=== PATIENT | female | born 1960 | race Caucasian/White ===

== ENCOUNTER 2019-11-24 18:12 | Emergency (ER) | payer OTHER, SELFPAY ==
[2019-11-24 18:25] VITALS: BP 115/75; PULSE 63; RESP 16; TEMP 36.3; O2SAT 99
--- NOTE | 2019-11-24 19:22 | ED.GENADULT ---
HPI - General Adult General Chief complaint: Upper Respiratory Infection Stated complaint: sore throat/cough/drainage Time Seen by Provider: 11/24/19 19:22 Source: patient and RN notes reviewed Mode of arrival: ambulatory Limitations: no limitations History of Present Illness HPI narrative: 59-year-old female with complaints of upper respiratory infection symptoms, PND, cough, and scratchy throat for 1 day. No treatment. 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 Dry cough. Rhinorrhea and nasal congestion. No exacerbating factors. No high or chills. No throat pain with swallowing. No voice changes. No drooling, neck or throat swelling. No nausea, vomiting, and abdominal pain. Denies chest pain, dyspnea, coughing up blood, difficulty swallowing, jaw pain, dental pain, facial pain, foreign body sensation, and rash. Menopausal. Some parts of this dictation were generated by voice recognition software and may contain typographical and/or grammatical inaccuracies. Related Data Allergies Allergy/AdvReac Type Severity Reaction Status Date / Time Sulfa (Sulfonamide Allergy Mild Verified 03/19/18 12:20 Antibiotics) Review of Systems Review of Systems: Narrative: CONSTITUTIONAL: Denies fever, chills, sweats. EYES: Denies visual changes, redness, discharge. ENT: Complains of rhinorrhea, congestion, PND, scratchy throat. Denies otalgia. CARDIOVASCULAR: Denies chest pain, palpitations, edema. RESPIRATORY: Denies dyspnea, wheezing. Complains of dry cough. GASTROINTESTINAL: Denies abdominal pain, nausea, vomiting, diarrhea. GENITOURINARY: Denies dysuria, hematuria, abnormal discharge. SKIN: Denies rash or itching. MUSCULOSKELETAL: Denies acute back pain, joint pain, myalgia. NEUROLOGIC: Denies numbness or focal weakness. PSYCHIATRIC: Denies anxiety or depression. All systems reviewed & are unremarkable except as noted in HPI and below. [facility] Past Medical History Medical History (Updated 11/25/19 @ 00:01 by Jyoti Navas) Chronic back pain Menopause Surgical History Surgical History (Updated 11/24/19 @ 19:33 by DIANA Frederick) History of lumpectomy of both breasts Benign, a ribbon pattern left in the right breast Family History Family History (Updated 12/02/19 @ 10:20 by DIANA Frederick) Other No significant family history Social History Social History (Updated 11/24/19 @ 19:33 by DIANA Frederick) Smoking status: Former smoker Additional smoking assessment comments: Yoana says she stopped smoking about 3 to 4 years ago Alcohol intake: current Alcohol use details: Occasional Substance use: never Living arrangements: with family Occupation/Education: occupation Gender identity (if verbalized by the patient): Female Comments At time of signature, agree with nurse past medical, surgical, social, and family history. There is no relevant family history pertinent to the presenting complaint. Exam Narrative: Exam Narrative: GENERAL: This is a well-nourished, well-developed patient, in no apparent distress. Speaks in full sentences and ambulates with steady gait without dyspnea. HEAD: normocephalic, atraumatic. EYES: PERRL. Sclera clear/white. Vision is grossly intact. EARS: External ears normal, auditory canals clear and without drainage, TMs normal without perforation. Hearing grossly intact. NOSE: External nose normal with no obvious nasal discharge, nares with mild redness and enlarged turbinates, clear rhinorrhea. THROAT: Mucous membranes moist, posterior pharynx with PND, mild erythema, no exudate, and normal tonsils. No drainage, no concern for Peritonsillar abscess. No drooling, trismus, or neck swelling. NECK: Neck supple, non-tender without lymphadenopathy, masses or thyromegaly. CARDIOVASCULAR: Regular rate and rhythm without murmurs, gallops, or rubs. RESPIRATORY: Clear to auscultat
== END 2019-11-24 20:02 | disposition home or self-care (01) ==
PROVIDERS: Emergency Provider Nurse Practitioner Family; PCP Family Medicine
DX: J06.9 Acute upper respiratory infection, unspecified (principal); Z87.891 Personal history of nicotine dependence
CPT/HCPCS: 99213; G0463

== ENCOUNTER 2020-07-27 08:02 | Emergency (ER) | payer OTHER, SELFPAY ==
[2020-07-27 08:16] VITALS: BP 135/85; PULSE 93; RESP 16; TEMP 36.8; O2SAT 97
--- NOTE | 2020-07-27 08:21 | ED.GENADULT ---
HPI - General Adult General Chief complaint: Upper Respiratory Infection Stated complaint: covid exposure Source: patient and RN notes reviewed Mode of arrival: ambulatory History of Present Illness HPI narrative: This is a 60-year-old white female who presented to the urgent care today to be seen for Covid testing due to exposure. Yesterday this urgent care clinic call her to inform him that he tested positive for Covid. Today patient is here at the clinic to be tested. Patient was educated informed that once someone in her household test positive she needs to be quarantined for 14 days whether her test shows a positive or not. Patient will be discharged home. I explained quarantine process and gave her and order to be tested for COVID-19. Patient notes that she was unsure, she now agrees to stay at home quarantined. The only symptoms that she had is a subjective low-grade fever of 99 in a runny nose Related Data Home Medications Medication Instructions Recorded Confirmed No Home Medications 07/27/20 07/27/20 Allergies Allergy/AdvReac Type Severity Reaction Status Date / Time Sulfa (Sulfonamide Allergy Mild Verified 07/27/20 08:16 Antibiotics) Review of Systems Review of Systems: All systems reviewed & are unremarkable except as noted in HPI and below (10 point system review) PMFSH Past Medical History Medical History Chronic back pain Menopause Surgical History Surgical History History of lumpectomy of both breasts Benign, a ribbon pattern left in the right breast Family History Family History Other No significant family history Social History Social History Smoking status: Former smoker Additional smoking assessment comments: Yoana says she stopped smoking about 3 to 4 years ago Alcohol intake: current Substance use: never Gender identity (if verbalized by the patient): Female Exam Narrative: Exam Narrative: GENERAL: This is a well-nourished, well-developed patient, in no apparent distress. HEAD: normocephalic, atraumatic. EYES: PERRL. Sclera clear/white. Vision is grossly intact. EARS: External ears normal, auditory canals clear and without drainage, TMs normal without perforation. Hearing grossly intact. NOSE: External nose normal with no obvious nasal discharge, nares without redness, no rhinorrhea. THROAT: Mucous membranes moist, posterior pharynx clear. NECK: Neck supple, non-tender without lymphadenopathy, masses or thyromegaly. CARDIOVASCULAR: Regular rate and rhythm without murmurs, gallops, or rubs. RESPIRATORY: Clear to auscultation. Breath sounds equal bilaterally. No wheezes, rales, or rhonchi. GASTROINTESTINAL: Abdomen soft, non-tender, nondistended. Bowel sounds are active. No hepato-splenomegaly, or palpable masses. No guarding. SKIN: warm, intact with no suspicious lesions or rash, good texture and turgor. NEURO: awake, alert, and oriented to person, place and time. There were no obvious focal neurologic abnormalities. Steady gait EXTREMITIES: Normal range of motion. No edema. No calf tenderness. Negative Homans sign bilaterally. BACK: Nontender without deformity or crepitance. No flank tenderness. Course Vital Signs Vital signs: Vital Signs Temperature 98.2 F 07/27/20 08:16 Pulse Rate 93 07/27/20 08:16 Respiratory Rate 16 07/27/20 08:16 Blood Pressure 135/85 07/27/20 08:16 Pulse Oximetry 97 07/27/20 08:16 Temperature 98.2 F 07/27/20 08:16 Pulse Rate 93 07/27/20 08:16 Respiratory Rate 16 07/27/20 08:16 Blood Pressure 135/85 07/27/20 08:16 Pulse Oximetry 97 07/27/20 08:16 Medical Decision Making Vital Signs Vital Signs: Vital Signs Temperature 98.2 F 07/27/20 08:16 Pulse Rat
== END 2020-07-27 08:22 | disposition home or self-care (01) ==
PROVIDERS: Emergency Provider Nurse Practitioner
DX: Z20.828 Contact with and (suspected) exposure to other viral communicable diseases (principal); Z87.891 Personal history of nicotine dependence
CPT/HCPCS: 99211; G0463

== ENCOUNTER 2022-05-15 11:33 | Emergency (ER) | payer OTHER, SELFPAY ==
[2022-05-15 11:44] VITALS: BP 129/75; PULSE 64; RESP 16; TEMP 36.4; O2SAT 100
--- NOTE | 2022-05-15 12:10 | ED.UPPEXIN ---
HPI - Extremity Injury (Upper) General Chief Complaint: Extremity Injury, Upper Stated Complaint: right elbow pain Time Seen by Provider: 05/15/22 11:50 Source: patient Mode of arrival: ambulatory Limitations: no limitations History of Present Illness HPI narrative: Veronika is a 61-year-old female patient presenting to the clinic today with complaints of right elbow swelling. She reports that she fell approximately 4 weeks ago and developed elbow swelling. She denies any pain to the elbow and has full range of motion. She is concerned about the swelling Related Data Home Medications Medication Instructions Recorded Confirmed omeprazole 40 mg capsule,delayed mg 05/15/22 release Allergies Allergy/AdvReac Type Severity Reaction Status Date / Time Sulfa (Sulfonamide Allergy Mild Verified 07/27/20 08:16 Antibiotics) Review of Systems Review of Systems: Pertinent positives per HPI. Patient denies any fever, chills, rash, headache, visual changes, dizziness, cough, runny nose, sore throat, shortness of breath, chest pain, palpitations, nausea, vomiting, diarrhea, constipation, abdominal pain, or any urinary issues. PMFSH Past Medical History Medical History Chronic back pain Menopause Surgical History Surgical History History of lumpectomy of both breasts Benign, a ribbon pattern left in the right breast Family History Family History Other No significant family history Social History Social History Smoking status: Former smoker Additional smoking assessment comments: Yoana says she stopped smoking about 3 to 4 years ago Alcohol intake: current Alcohol use details: Occasional Substance use: never Gender identity (if verbalized by the patient): Female Comments At the time of my signature, I reviewed and agree with the nursing past medical, surgical, social, and family history. There is no relevant family history pertinent to the patient complaint. Exam Narrative: General: Well-developed, well nourished, in no apparent distress Head: Normocephalic, atraumatic. Cardio: Regular rate and rhythm, s1 and s2 normal, no murmur appreciated. Resp: Clear to auscultation bilaterally, no rhonchi, rales, wheezing or rubs. Musculoskeletal: No deformity, non-tender to palpation, swelling over the olecranon bursa, no redness or erythremia noted, grossly normal range of motion, muscle strength strong and equal, peripheral pulse strong, no edema, no cyanosis, normal gait and station Course Course Emergency Course: Portions of this record may have been created with voice recognition software. Level of Care: Express Care Visit Vital Signs Vital signs: Vital Signs Temperature 36.4 C L 05/15/22 11:44 Pulse Rate 64 05/15/22 11:44 Respiratory Rate 16 05/15/22 11:44 Blood Pressure 129/75 05/15/22 11:44 Pulse Oximetry 100 05/15/22 11:44 Oxygen Delivery Room Air 05/15/22 11:44 Temperature 36.4 C L 05/15/22 11:44 Pulse Rate 64 05/15/22 11:44 Respiratory Rate 16 05/15/22 11:44 Blood Pressure 129/75 05/15/22 11:44 Pulse Oximetry 100 05/15/22 11:44 Oxygen Delivery Room Air 05/15/22 11:44 Vital signs reviewed MDM - Extremity Injury (Upper) MDM Narrative Medical decision making narrative: At the time of visit patient is resting comfortably on the exam table. I suspect the patient has olecranon bursitis. Supportive measures were discussed with the patient she voiced understanding of discharge instructions. I offered to drain the olecranon bursitis however the patient declined. Differential Diagnosis Differential diagnosis: Likely other (elbow pain/injury, olecrenon bursitis) Discharge Plan Discharge Clinical Impress
== END 2022-05-15 12:17 | disposition home or self-care (01) ==
PROVIDERS: Emergency Provider Nurse Practitioner Family
DX: M70.22 Olecranon bursitis, left elbow (principal)
CPT/HCPCS: 99212; G0463

== ENCOUNTER 2023-05-17 08:04 | Emergency (ER) | payer OTHER, SELFPAY ==
[2023-05-17 08:14] VITALS: BP 112/84; PULSE 93; RESP 16; TEMP 36.6; O2SAT 100
--- NOTE | 2023-05-17 08:19 | ED.SKABFB ---
HPI - Skin/Abscess/Foreign Bdy General Chief complaint: Skin/Abscess/Foreign Body Stated complaint: Rash Time Seen by Provider: 05/17/23 08:19 Source: patient, RN notes reviewed and old records reviewed Mode of arrival: ambulatory Limitations: no limitations History of Present Illness HPI narrative: 62-year-old female who presents to [facility] with complaints of poison enrique rash for 2 day duration after working in the yard. Patient reports that she has rash on her arms, chest area, neck and on her face around her eyes. Patient has puffy eyes with no change in her vision. Patient has used Zenafil scrub on her arm rash which has cleared the drainage from her arms. She has red raised rash to chest and to neck with areas on her cheeks, swelling around eyes.has applied IVAREST lotion to those areas and she has taken Benadryl for her itching. Patient denies any difficulty with her breathing or with swallowing. MD complaint: rash Onset (ago): day(s) (2) Treatments prior to arrival: OTC topical medication and other (zanfel scrub, ) Related Data Home Medications Medication Instructions Recorded Confirmed omeprazole 40 mg capsule,delayed 40 mg PO DAILY 05/15/22 05/17/23 release Allergies Allergy/AdvReac Type Severity Reaction Status Date / Time Sulfa (Sulfonamide Allergy Mild Other Verified 05/17/23 08:13 Antibiotics) Review of Systems Review of Systems: CONSTITUTIONAL: Denies fever, chills, or sweats. CARDIOVASCULAR: Denies chest pain, palpitations, or edema. RESPIRATORY: Denies cough or dyspnea. SKIN: Reports red raised pruritic rash to her arms, chest neck and face with MUSCULOSKELETAL: Denies joint pain or myalgia. NEUROLOGIC: Denies headache, numbness, or weakness. All systems reviewed & are unremarkable except as noted in HPI and below PMFSH Past Medical History Medical History Chronic back pain Menopause Surgical History Surgical History History of lumpectomy of both breasts Benign, a ribbon pattern left in the right breast Family History Family History Other No significant family history Social History Social History Smoking status: Former smoker Additional smoking assessment comments: Yoana says she stopped smoking about 3 to 4 years ago Alcohol intake: current Alcohol use details: Occasional Substance use: never Living arrangements: with family Occupation/Education: occupation Gender identity (if verbalized by the patient): Female Comments At time of signature, agree with nursing past medical, surgical, social and family history. There is no relevant family history pertinent to the presenting complaint Exam Narrative: GENERAL: Well-appearing, well-nourished, and in no acute distress. HEAD: Normocephalic, atraumatic. EYES: PERRLA, conjunctivae clear, and EOMI.eye puffiness with no change in vision ENT: Mucous membranes moist. Oropharynx without edema, erythema or lesions. NECK: Supple. No lymphadenopathy CHEST: Clear to auscultation. No respiratory distress.SAO2 100% on room air HEART: Regular rate and rhythm. SKIN: Warm, dry.? Patches of erythema with red small raised rash to both arms,chest, neck and face with swelling around eyes. no present drainage from rash noted. NEURO:? Alert and oriented x3. PSYCH: Normal mood and affect Course Course Emergency Course: Patient is aware of diagnosis, understands and agrees to treatment plan.? Anticipatory guidance given.? Patient agrees to follow-up as directed and is aware of reasons to seek care at the emergency department. Portions of this record may have been created with voice recognition software Level of Care: Express Care Visit Vital Signs Vital signs: Vital Signs Temp
[2023-05-17] MEDS: methylPREDNISolone ACETATE 80 MG/ML VIAL IM (08:41)
== END 2023-05-17 09:20 | disposition home or self-care (01) ==
PROVIDERS: Emergency Provider Registered Nurse
DX: L23.7 Allergic contact dermatitis due to plants, except food (principal); H05.223 Edema of bilateral orbit; Z87.891 Personal history of nicotine dependence
CPT/HCPCS: 96372; 99213; G0463; J1040

== ENCOUNTER 2023-10-30 13:39 | Outpatient (CLI) | payer OTHER, SELFPAY ==
--- NOTE | ~2023-10-30 | XR_ITS ---
EXAMINATION: XR abdomen/kub 1V DATE: 10/30/2023 13:56 INDICATION: Nephrolithiasis TECHNIQUE: A supine view of the abdomen on 2 radiographs was obtained. COMPARISON: None. FINDINGS: No dilated loops of gas-filled bowel to suggest obstruction. No evident nephrolithiasis at either kid jeramie. There are few round or ovoid calcifications in the left pelvis with appearance favoring phleboli ths. Small calcifications projecting slightly inferomedial to the bilateral sacroiliac joints likely representing atherosclerotic calcific lesions at the bilateral common iliac arteries although could n ot exclude less likely ureteral stones. IMPRESSION: 1. A few small calcifications in the pelvis most likely combination of phleboliths and atheroscleroti c calcifications at the bilateral common iliac arteries versus less likely ureteral stones. No stones seen at the kidneys. Reviewed, dictated and finalized at location A. HT RADIO OPERATOR IMPRESSION: 1. A few small calcifications in the pelvis most likely combination of phleboli ths and atherosclerotic calcifications at the bilateral common iliac arteries v ersus less likely ureteral stones. No stones seen at the kidneys.
== END 2023-10-30 13:40 | disposition home or self-care (01) ==
LOC: ANHIMG 13:41
PROVIDERS: Visit Provider Urology
DX: N20.0 Calculus of kidney (principal)
CPT/HCPCS: 74018

== ENCOUNTER 2024-10-26 13:54 | Outpatient (CLI) | payer OTHER, SELFPAY ==
--- NOTE | ~2024-10-26 | XR_ITS ---
Exam: Abdomen 1V HISTORY: nephrolithiasis COMPARISON: 10/30/2023 TECHNIQUE: Supine images of the abdomen FINDINGS: Bowel gas pattern is non-obstructive. There is no free air or deep sulci. Calculi are identified projecting over the expected regions of the bilateral kidneys or along the exp ected course of the bilateral ureters. Multiple (stable) phleboliths within the left hemipelvis. Lung bases are unremarkable. Bones and soft tissues are unremarkable. IMPRESSION: Nonspecific, nonobstructive bowel gas pattern. No calculi identified projecting over the expected regions of the bilateral kidneys or along the expe cted course of the bilateral ureters. Reviewed, dictated and finalized at location A. 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 No calculi identified projecting over the expected regions of the bilateral kid neys or along the expected course of the bilateral ureters.
--- OUTSIDE RECORDS SUMMARY | 2024-10-26 14:49 | XMS_ITS | Referral Summary ---
Author Organization [facility] Address [address] [place] [address] Care Team Providers Care Demurrage Worker Name Role Phone No, Physician Primary Care Provider [phone] Allergies Active Allergy Reactions Criticality Noted Date Comments Sulfa (Sulfonamide Antibiotics) Unknown,Dizziness Low 02/07/2016 Medications omeprazole (PriLOSEC) 40 mg capsule Take 1 capsule (40 mg total) by mouth daily 90 capsule 3 02/27/2024 Active Active Problems Problem Noted Date Diagnosed Date Encounter for screening colonoscopy 08/20/2022 Overview (08/20/2022): Added automatically from request for surgery [id number] Esophageal dysphagia 12/13/2021 Overview (12/13/2021): Added automatically from request for surgery [id number] Social History Tobacco Use Types Packs/Day Years Used Date Smoking Tobacco: Former Cigarettes Q uit: 01/09/2017 Smokeless Tobacco: Never AUDIT-C Answer Date Recorded Q1: How often do you have a drink containing alc ohol? 2-3 times a week 10/04/2022 Q2: How many drinks containi ng alcohol do you have on a typical day when you are drinking? 3 or 4 10/04/2022 Q3: How often do you have si x or more drinks on one occasion? Never 10/04/2022 Personal Safety Answer Date Recorded Getting School Help Needed Not on file 11/28 Comments No Sex and Gender Information Value Date Recorded Sex Assigned at Not on file Legal Sex Female 6:06 AM SHOVEL LOGGER Gender Identity Not on file Sexual Orientation Not on file Last Filed Vital Signs Vital Sign Reading Time Taken Comments Blood Pressure 104/74 02/27/2024 8:31 AM CDT Pulse 86 02/27/2024 8:31 AM CDT Temperature 36.7 C (98 F) 02/27/2024 8:31 AM CDT Respiratory Rate 18 10/04/2022 2:35 PM SHOVEL LOGGER Oxygen Saturation 96% 02/27/2024 8:31 AM CDT Inhaled Oxygen Concentration - - Weight 82.6 kg (182 lb) 02/27/2024 8:31 AM CDT Height 165.1 cm (5' 5 ) 02/27/2024 8:31 AM CDT Body Mass Index 30.29 02/27/2024 8:31 AM CDT Plan of Treatment Not on file Procedures Procedure Name Priority Date/Time Associated Diagnosis Comments SCREENING MAMMOGRAM BILATERAL W DONAVAN Schedule Routine, Read Routine (OP Routine) 06/10/2024 11:32 AM CDT Screening mammogram, encounter for COLONOSCOPY 10/04/2022 1:39 PM SHOVEL LOGGER from Last 3 Months or Most Recently Relevant to Health Maintenance Results * Screening Mammogram Bilateral W [place] (06/10/2024 11:32 AM CDT) Anatomical Region Laterality Modality Breast Bilateral Mammography Narrative 06/10/2024 2:26 PM CDT Mammogram Technique: Bilateral Digital Breast Tomosynthesis, Bilateral C-view 2D Screening mammogram. Views obtained: bilateral craniocaudal and bilateral mediolateral oblique. Computer Aided Detection was performed. Mammogram Findings: The present examination has been compared to prior imaging studies performed at [facility] on 02/07/2016, 08/14/2016 and 02/12/2017. There are scattered areas of fibroglandular density. There is no suspicious abnormality in either breast. Impression: There is no mammographic evidence of malignancy. Annual screening mammography is recommended. OVERALL FINAL ASSESSMENT: BI-RADS CATEGORY 1: Negative. Procedure Note Juana Crawley MD - 06/10/2024 Mammogram Technique: Bilateral Digital Breast Tomosynthesis, Bilateral C-view 2D Screening mammogram. Views obtained: bilateral craniocaudal and bilateral mediolateral oblique. Computer Aided Detection was performed. Mammogram Findings: The present examination has been compared to prior imaging studies performed at [facility] on 02/07/2016, 08/14/2016 and 02/12/2017. There are scattered areas of fibroglandular density. There is no suspicious abnormality in either breast. Impression: There is no mammographic evidence of malignancy. Annual screening mammography is recommended. OVERALL FINAL ASSESSMENT: BI-RADS CATEGORY 1: Negative. us Self Screening Mammogram IMG MAMMO PROCEDURES Fi nal Result * COLONOSCOPY (10/04/2022 1:39 PM SHOVEL LOGGER) Anatomical Region Laterality Modality Other Narrative Procedure Note Paula Salvador MD - 10/04/2022 1:39 PM [facility] Patient Name: Veronika Betancur Procedure Date: 10/04/2022 1:39 PM Date of : 1960 Admit Type: Outpatient Age: 62 Gender: Female Attending MD: Paula Salvador M.D. Room: [facility] ENDOSCOPY ROOM 8 Note Status: Finalized Procedure: Colonoscopy Indications: Screening for colorectal malignant neoplasm Referring MD: Paula Salvador M.D. Providers: Paula Salvador M.D. Medicines: Monitored Anesthesia Care Complications: No immediate complications. Estimated Blood Loss: Estimated blood loss: none. Procedure: Pre-Anesthesia Assessment: - ASA Grade Assessment: II - A patient with mild systemic disease. - Immediately prior to administration ofmedications, the patient was re-assessed for adequacy to receive sedatives. - The risks and benefits of the procedure and the sedation options and risks were discussed with the patient. All questions were answered and informed consent was obtained. The benefits, risks and alternatives of theprocedure and sedation were discussed and informed consentwas obtained. All questions were answered. Please referto the signed informed consent document in the medical record. The scope was passed under direct vision.The [id number] endoscope was introduced through the anus and advanced to the terminal ileum, with identification of the appendiceal orifice and IC valve. The colonoscopy was performed without difficulty. The patient tolerated the procedurewell. The quality of the bowel preparation was good. The bowel preparation used was SUPREP via split dose instruction. Findings: The perianal and digital rectal examinations were normal. Three sessile polyps were found in the sigmoid colon and ascending colon. The polyps were 3 to 10 mm in size. These polyps were removed with a cold snare. Resection and retrieval were complete. A few small-mouthed diverticula were found in the sigmoid colon. Non-bleeding internal hemorrhoids were found during retroflexion. The hemorrhoids were small. Impression: - Three 3 to 10 mm polyps in the sigmoid colon andin the ascending colon, removed with a cold snare. Resected and retrieved. - Diverticulosis in the sigmoid colon. - Non-bleeding internal hemorrhoids. Recommendation: - Patient has a contact number available for emergencies. The signs and symptoms of potential delayed complications were discussed with thepatient. Return to normal activities tomorrow. Written discharge instructions were provided to thepatient. - Resume previous diet. - Continue present medications. - Await pathology results. - Repeat colonoscopy in 3 years for surveillancebased on pathology results. Electronically signed by Paula Salvador MD Paula Salvador M.D. 10/04/2022 2:10:19 PM . Number of Addenda: 0 Note Initiated On: 10/04/2022 1:39 PM Recognized by the [place] [employer] for promoting quality in endoscopy Paula Salvador MD ENDOSCOPY PROCEDURES Final Res ult from Last 3 Months or Most Recently Relevant to Health Maintenance Insurance [facility] [employer] SIGNATURE Advance Directives For more information, please contact: [phone] * Full Code (Latest Code Status on File) Date Activated Date Inactivated Comments 10/04/2022 2:39 PM 10/04/2022 6:54 PM * Full Code Date Activated Date Inactivated Comments 10/04/2022 1:31 PM 10/04/2022 2:39 PM * Full Code Date Activated Date Inactivated Comments 01/09/2022 7:36 AM 01/09/2022 1:22 PM Care Teams Demurrage Worker Relationship Specialty Start Date End Date No, Physician PCP - General 12/27/21
--- OUTSIDE RECORDS SUMMARY | 2024-10-26 14:49 | XMS_ITS | Clinical Summary ---
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 Name Role Phone No, Physician Primary Care Provider [phone] Allergies Active Allergy Reactions Criticality Noted Date Comments Sulfa (Sulfonamide Antibiotics) Unknown,Dizziness Low 02/07/2016 Medications omeprazole (PriLOSEC) 40 mg capsule Take 1 capsule (40 mg total) by mouth daily 90 capsule 3 02/27/2024 5 Active Active Problems Problem Noted Date Diagnosed Date Encounter for screening colonoscopy 08/20/2022 Overview (08/20/2022): Added automatically from request for surgery [id number] Esophageal dysphagia 12/13/2021 Overview (12/13/2021): Added automatically from request for surgery [id number] Medical History Medical History Date Comments Murmur, heart Delayed emergence from general anesthesia Family History Medical History Relation Name Comments Skin cancer Mother Family history of skin cancer - (Added by TW Conv) Relation Name Status Comments Mother Social History Tobacco Use Types Packs/Day Years [...] on file Legal 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 Gender Identity Not on file Sexual Orientation Not on file Obstetrics History Last Filed Vital Signs Vital Sign Reading Time Taken Comments Blood Pressure 104/74 02/27/2024 8:31 AM CDT Pulse 86 02/27/2024 8:31 AM CDT Temperature 36.7 C (98 F) 02/27/2024 8:31 AM CDT Respiratory Rate 18 10/04/2022 2:35 PM CARRIER DRIVER Oxygen Saturation 96% 02/27/2024 8:31 AM CDT Inhaled Oxygen Concentration - - Weight 82.6 kg (182 lb) 02/27/2024 8:31 AM CDT Height 165.1 cm (5' 5 ) 02/27/2024 8:31 AM CDT Body Mass Index 30.29 02/27/2024 8:31 AM CDT Plan of Treatment Health Maintenance Due Date Last Done Comments Cervical Cancer Screening 1960 Depression Screening 1960 Hepatitis C Screening 1960 DTaP/Tdap/Td Vaccine (1 - Tdap) 1973 Hepatitis B Screening 1980 Regular Well Visit/Exam 18-64 1980 Zoster Vaccine (1 of 2) 2012 Influenza Vaccine (#1) 2024 Breast Cancer Screening-Mammogram 06/10/2025 06/10/2024, 02/26/2017, 02/12/2017, Additional history exists Colon Cancer Screening-Colonoscopy 10/04/2032 10/04/2022 Pneumococcal vaccine <65 Aged Out No longer eligible based on patient's age to complete this topic Procedures Procedure Name Priority Date/Time Associated Diagnosis Comments SCREENING MAMMOGRAM BILATERAL W [place] Schedule Routine, Read Routine (OP Routine) 06/10/2024 11:32 AM CDT Screening mammogram, encounter for COLONOSCOPY 10/04/2022 1:39 PM CARRIER DRIVER from Last 3 Months or Most Recently [...] compared to prior imaging studies performed at [facility] on 02/07/2016, 08/14/2016 and 02/12/2017. There [...] compared to prior imaging studies performed at [facility] on 02/07/2016, 08/14/2016 and 02/12/2017. There are scattered areas of fibroglandular density. There is no suspicious abnormality in either breast. Impression: There is no mammographic evidence of malignancy. Annual screening mammography is recommended. OVERALL FINAL ASSESSMENT: BI-RADS CATEGORY 1: Negative. us Self Screening Mammogram IMG MAMMO PROCEDURES Fi nal Result * COLONOSCOPY (10/04/2022 1:39 PM CARRIER DRIVER) Anatomical Region Laterality Modality Other Narrative Procedure Note Paula Salvador MD - 10/04/2022 1:39 PM [facility] Patient Name: Veronika Betancur Procedure Date: 10/04/2022 1:39 PM Date of : 1960 Admit Type: Outpatient Age: 62 Gender: Female Attending MD: Paula Salvador M.D. Room: [facility] ENDOSCOPY ROOM 8 Note Status: Finalized Procedure: [...] The scope was passed under direct vision.The [id number] endoscope was introduced through the anus and [...] On: 10/04/2022 1:39 PM Recognized by the [employer] for promoting quality in endoscopy Paula Salvador MD ENDOSCOPY PROCEDURES Final Res ult from Last 3 Months or Most Recently Relevant to Health Maintenance Insurance [facility] Advance Directives For more information, please contact: [phone] * Full Code (Latest Code Status on File) Date Activated Date Inactivated Comments 10/04/2022 2:39 PM 10/04/2022 6:54 PM * Full Code Date Activated Date Inactivated Comments 10/04/2022 1:31 PM 10/04/2022 2:39 PM * Full Code Date Activated Date Inactivated Comments 01/09/2022 7:36 AM 01/09/2022 1:22 PM Care Teams Wash Plant Operator Relationship Specialty Start Date End Date No, Physician PCP - General 12/27/21
== END 2024-10-26 13:55 | disposition home or self-care (01) ==
PROVIDERS: Visit Provider Urology
DX: N20.0 Calculus of kidney (principal)
CPT/HCPCS: 74018